=== PATIENT | female | born 1980 | race American Indian/Alaskan Native ===

== ENCOUNTER 2020-10-26 03:01 | Emergency (ER) | payer MEDICAID ==
[2020-10-26 04:50] LABS: Hematocrit 31.8 % (30.3-42.9); Hemoglobin 10.3 gm/dl (10.1-14.3); Mean Corpuscular HGB Conc 33 % (30-34); Mean Corpuscular Volume 73 fl (79-97); Platelet Count 292 K/mm3 (140-440); Red Blood Count 4.38 M/mm3 (3.65-5.03); Red Cell Distribution Width 15.3 % (13.2-15.2)
[2020-10-26 05:08] LABS: Blood Urea Nitrogen 11 mg/dL (7-17); Calcium 8.6 mg/dL (8.4-10.2); Hemolysis Index 3
[2020-10-26 05:18] LABS: BUN/Creatinine Ratio 18
[2020-10-26 05:41] LABS: HCG Qualitative,Urine Negative (Negative)
[2020-10-26 05:43] LABS: Bacteria,Urine 1+ /HPF (Negative); Bilirubin,Urine NEG (Negative); Blood,Urine NEG (Negative); Color,Urine Amber (Yellow); Mucus,Urine FEW /HPF; RBC,Urine < 1.0 /HPF (0.0-6.0)
--- NOTE | 2020-10-26 05:47 | Emergency Department Report ---
ED Abdominal Pain HPI - General Chief Complaint: Abdominal Pain Stated Complaint: SEVERE ABD PAIN Time Seen by Provider: 10/26/20 04:52 Source: patient Mode of arrival: Ambulatory Limitations: No Limitations - History of Present Illness Initial Comments: 40-year-old -[place] female presents to the emergency room for 4-day history of abdominal pain and lower left quadrant pain with urinary urgency. Patient states that she was seen at [facility] yesterday had a CT scan and was told she has fibroids. Patient was discharged home on tramadol acetaminophen 37.5 and 325 mg. Patient states that she took ibuprofen last at 11 PM and at 230 she took the tramadol. Patient states that the pain radiates to the front and back of her left side. Patient reports her last menstrual period was 10/03/2020. She has not followed up with her primary care provider as she has 1 on her insurance card but never seen them per patient. MD Complaint: abdominal pain Onset/Timin -: days(s) Location: LLQ, suprapubic Radiation: L flank, back Severity scale (0 -10): 9 Quality: stabbing, aching, sharp Consistency: constant Improves With: nothing Worsens With: nothing Associated Symptoms: other (Urinary frequency and urgency) Treatments Prior to Arrival: prescription analgesics - Related Data Allergies Allergy/AdvReac Type Severity Reaction Status Date / Time No Known Allergies Allergy Unverified 10/26/20 05:08 ED Review of Systems ROS: Stated complaint: SEVERE ABD PAIN Other details as noted in HPI Comment: All other systems reviewed and negative ED Past Medical Hx - Past Medical History Previous Medical History?: No - Surgical History Past Surgical History?: No - Social History Smoking Status: Never Smoker Substance Use Type: None ED Physical Exam - General Limitations: No Limitations General appearance: alert, in no apparent distress - Head Head exam: Present: atraumatic, normocephalic - Eye Eye exam: Present: normal appearance - ENT ENT exam: Present: mucous membranes moist - Neck Neck exam: Present: normal inspection, full ROM - Respiratory Respiratory exam: Present: normal lung sounds bilaterally. Absent: respiratory distress - Cardiovascular Cardiovascular Exam: Present: regular rate, normal rhythm. Absent: systolic mur mur, diastolic murmur, rubs, gallop - GI/Abdominal GI/Abdominal exam: Present: soft, tenderness (Suprapubic). Absent: distended, guarding, rebound - Extremities Exam Extremities exam: Present: normal inspection, full ROM - Back Exam Back exam: Present: normal inspection. Absent: CVA tenderness (R), CVA tenderness (L) - Neurological Exam Neurological exam: Present: alert, oriented X3 - Psychiatric Psychiatric exam: Present: normal affect, normal mood - Skin Skin exam: Present: warm, dry, intact, normal color. 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 Sodium 138 Potassium 4.1 Chloride 102.7 Carbon Dioxide 28 Anion Gap 11 BUN 11 Creatinine 0.6 Estimated GFR > 60 BUN/Creatinine Ratio 18 Glucose 94 Calcium 8.6 HCG, Qual Negative Urine Color Urine Turbidity Urine pH Ur Specific [place] Urine Protein Urine Glucose (UA) Urine Ketones Urine Blood Urine Nitrite Ur Reducing Substances Urine Bilirubin Urine Ictotest Urine Urobilinogen Ur Leukocyte Esterase Urine WBC (Auto) Urine RBC (Auto) U Epithel Cells (Auto) Urine Bacteria (Auto) Urine Mucus Urine HCG, Qual 10/26/20 04:54 WBC RBC Hgb Hct MCV MCH MCHC RDW Plt Count Seg Neutrophils % Sodium Potassium Chloride Carbon Dioxide Anion Gap BUN Creatinine Estimated GFR BUN/Creatinine Ratio Glucose Calcium HCG, Qual Urine Color Glad[place] Urine Turbidity Cloudy Urine pH 5.0 Ur Specific [place] 1.032 H Urine Protein 30 mg/dl Urine Glucose (UA) Neg Urine Ketones Neg Urine Blood Neg Urine Nitrite Neg Ur Reducing Substances Not Reportable Urine Bilirubin Neg Urine Ictotest Not Reportable Urine Urobilinogen 2.0 Ur Leukocyte Esterase Tr Urine WBC (Auto) 1.0 Urine RBC (Auto) < 1.0 U Epithel Cells (Auto) 2.0 Urine Bacteria (Auto) 1+ Urine Mucus Few Urine HCG, Qual Negative - Radiology Data Radiology results: report reviewed [facility] [address] [place] [address] Ultrasound Report Signed Patient: TYRA MCCRARY MR#: [id number] : 1980 Acct:[id number] Age/Sex: 40 / F ADM Date: 10/26/20 Loc: ED Attending Dr: Ordering Physician: RENNY MARCIAL Date of Service: 10/26/20 Procedure(s): US pelvic complete Accession Number(s): [id number] cc: RENNY MARCIAL US pelvic complete INDICATION / CLINICAL INFORMATION: Pelvic pain. TECHNIQUE: Transabdominal. Duplex Color Doppler used: Yes. COMPARISON: None available FINDINGS: UTERUS: Measures 11.9 cm. -Endometrial stripe measures 0.6 cm. - Mass lesions: Large 7 cm fundal heterogeneous hypoechoic lesion.. Ovaries: Not visualized. However there is no significant abnormality of the adnexa seen. URINARY BLADDER: No significant abnormality. FREE FLUID: None. ADDITIONAL FINDINGS: None. IMPRESSION: 1. Findings most consistent with a 7 cm fundal fibroid. Otherwise, no signi ficant abnormal. Signer Name: Matt Parsons MD Signed: 10/26/2020 6:41 AM Workstation Name: [id number] Transcribed By: CS Dictated By: Matt Parsons MD Electronically Authenticated By: Matt Parsons MD Signed Date/Time: 10/26/20640 DD/ 9 TD/TT: Print Cancel - Medical Decision Making 40-year-old -[place] female presents to the emergency room for 4-day history of abdominal pain and lower left quadrant pain with urinary urgency. Patient states that she was seen at [facility] yesterday had a CT scan and was t old she has fibroids. Patient was discharged home on tramadol acetaminophen 37.5 and 325 mg. Patient states that she took ibuprofen last at 11 PM and at 230 she took the tramadol. Patient states that the pain radiates to the front and back of her left side. Patient reports her last menstrual period was 10/03/2020. She has not followed up with her primary care provider as she has 1 on her insurance card but never seen them per patient. Ultrasound shows you have a 7 cm fibroid in the fundus of the uterus. Patient was given Percocet for pain management. Urinalysis is nonactionable. Critical care attestation.: If time is entered above; I have spent that time in minutes in the direct care of this critically ill patient, excluding procedure time. ED Disposition Clinical Impression: Fibroid uterus Qualifiers: Uterine leiomyoma location: intramural Qualified Code(s): D25.1 - Intramural leiomyoma of uterus Disposition: - TO HOME OR SELFCARE Is pt being admited?: No Does the pt Need Aspirin: No Condition: Stable Instructions: Abdominal Pain (ED), Uterine Fibroids, [id number] Additional Instructions: Ultrasound shows you have a 7 cm fibroid in your uterus. Your urinalysis was negative for any infection. Continue with your ibuprofen and tramadol/acetaminophen. Follow-up with an [facility]. Referrals: [facility] [Primary Care Provider] - 3-5 Days [facility] [Provider Group] - 3-5 Days [facility] [Provider Group] - 3-5 Days Forms: Work/School Release Form(ED)
[2020-10-26 05:54] LABS: Albumin 3.9 g/dL (3.9-5); Bilirubin,Direct 0.2 mg/dL (0-0.2)
[2020-10-26] MEDS ORDERED: oxyCODONE /ACETAMINOPHEN 5-325MG TAB PO ONE (06:06)
[2020-10-26 06:18] LABS: Anisocytosis Few; Hypochromasia 1+; Ovalocytes Few; Platelet Estimate Consistent w Auto; Schistocytes Rare; Total Cells Counted 100
--- NOTE | 2020-10-26 06:46 | Ultrasound Report ---
US pelvic complete INDICATION / CLINICAL INFORMATION: Pelvic pain. TECHNIQUE: Transabdominal. Duplex Color Doppler used: Yes. COMPARISON: None available FINDINGS: UTERUS: Measures 11.9 cm. -Endometrial stripe measures 0.6 cm. - Mass lesions: Large 7 cm fundal heterogeneous hypoechoic lesion.. Ovaries: Not visualized. However there is no significant abnormality of the adnexa seen. URINARY BLADDER: No significant abnormality. FREE FLUID: None. ADDITIONAL FINDINGS: None. IMPRESSION: 1. Findings most consistent with a 7 cm fundal fibroid. Otherwise, no significant abnormal. Signer Name: Matt Parsons MD Signed: 10/26/2020 6:41 AM Workstation Name: [id number]
[2020-10-26 07:28] VITALS: BP 124/68
== END 2020-10-26 07:28 | disposition home or self-care (01) ==
LOC: ED 03:01
DX: D25.9 Leiomyoma of uterus, unspecified (principal)
CPT/HCPCS: 36415; 76856; 80048; 80076; 81001; 81025; 84703; 85007; 85025

== ENCOUNTER 2022-01-06 22:30 | Emergency (ER) | payer SELFPAY | END 2022-01-07 | disposition left against medical advice (07) | LOC: ED 22:30 | DX: R20.0 Anesthesia of skin (principal); G43.909 Migraine, unspecified, not intractable, without status migrainosus; Z53.21 Procedure and treatment not carried out due to patient leaving prior to being seen by health care provider ==